=== PATIENT | female | born 2000 | race Caucasian/White ===

== ENCOUNTER → 2021-04-25 03:10 | Observation (INO) ==
[2021-04-25 02:01] LABS: Bilirubin,Urine Negative (Negative); Blood,Urine Negative (Negative); Clarity,Urine Clear (Clear); Color,Urine Yellow (Yellow); Glucose,Urine (UA) Normal (Normal); Ketones,Urine Negative (Negative); Leukocyte Esterase,Urine Small (Negative); Nitrite,Urine Negative (Negative); PH,Urine 6.5 pH Units (5.0-8.0); Protein,Urine Negative (Neg-Trace); Specific Gravity,Urine >= 1.030 (1.010-1.025); Urobilinogen,Urine Normal (Normal)
[2021-04-25 02:17] LABS: Bacteria,Urine Few per hpf (None-Few); Mucus,Urine Few per lpf (None-Few); Squamous Epithelial Cell,Urine Moderate per hpf (None-Few); WBC,Urine 15-30 per hpf (0-3)
== END | disposition home or self-care (01) ==
LOC: 1NENULAB
PROVIDERS: ADMIT Advanced Practice Midwife; ATTEND Advanced Practice Midwife

== ENCOUNTER 2021-05-04 06:37 | Inpatient (IN) ==
[2021-05-04] MEDS ORDERED: Famotidine 20 MG/2 ML VIAL IVP PRN (06:39)
[2021-05-04] MEDS ORDERED: *HR* Nalbuphine 10 MG/ML AMPUL IV PRN (06:39)
[2021-05-04] MEDS ORDERED: Metoclopramide 10 MG/2 ML VIAL IVP PRN (06:39)
[2021-05-04] MEDS ORDERED: Ondansetron 4 MG/2 ML VIAL IVP PRN ×2 (06:39→08:36)
[2021-05-04] MEDS ORDERED: Naloxone 0.4 MG/ML INJ IVP PRN ×2 (06:39→08:36)
[2021-05-04] MEDS ORDERED: Penicillin G Potassium 5,000,000 UNIT in 0.9 % Sodium Chloride Mini Bag 100 ML IVPB ONE (06:43)
[2021-05-04] MEDS ORDERED: Ringers Solution, Lactated 1,000 ML IVC SCH (06:45)
[2021-05-04 08:28] LABS: Basophils # 0.1 K/mcL (0.0-0.2); Basophils % 0.6 %; Eosinophils # 0.2 K/mcL (0.0-0.6); Eosinophils % 1.2 %; Hematocrit 36.6 % (35.3-44.9); Hemoglobin 13.1 g/dL (11.5-15.4); Immature Granulocytes % 1.2 % (0-4); Lymphocytes # 2.5 K/mcL (0.6-4.6); Lymphocytes % 17.6 %; Mean Corpuscular HGB Conc 35.8 g/dL (31.6-35.5); Mean Corpuscular Hemoglobin 33.3 pg (28.0-33.3); Mean Corpuscular Volume 93.1 fL (83.0-100.0); Mean Platelet Volume 9.8 fL (9.4-12.4); Monocytes % 6.9 %; Neutrophils # 10.1 K/mcL (1.6-8.9); Platelet Count 324 K/mcL (140-400); Red Blood Count 3.93 M/mcL (3.82-4.97); Segmented Neutrophils % 72.5 %; White Blood Count 13.9 K/mcL (4.3-11.1)
[2021-05-04 08:30] LABS: Creatinine,Urine 187 mg/dL; Protein/Creatinine Ratio,Urine 0.23 mg/mg (0.00-0.20)
[2021-05-04] MEDS ORDERED: EPHEDrine 50 MG/ML VIAL IVP PRN (08:36)
[2021-05-04] MEDS ORDERED: Ropivacaine/PF 0.2% 20 ML VIAL EP ONE (08:36)
[2021-05-04] MEDS ORDERED: *HR* FentaNYL (PF) 100 MCG/2 ML VIAL EP ONE (08:36)
[2021-05-04 08:39] LABS: Alanine Aminotransferase 11 Units/L (7-52); Aspartate Amino Transferase 16 Units/L (13-39); BUN/Creatinine Ratio 20 (6-26); Blood Urea Nitrogen 9 mg/dL (6-20); Lactate Dehydrogenase 125 Units/L (140-271); Uric Acid 4.2 mg/dL (2.3-7.6); eGFR For African Americans > 60 (> 60); eGFR For Non-African Americans > 60 (> 60)
[2021-05-04] MEDS ORDERED: Epidural Premix (fent/bupiv) 110 ML EP SCH (08:45)
[2021-05-04 08:56] LABS: Influenza A PCR Negative (Negative); Influenza B PCR Negative (Negative); Resp. Syncytial Virus PCR Negative (Negative)
[2021-05-04 09:07] LABS: SARS-CoV-2 by PCR (In House) Negative (Negative)
[2021-05-04] MEDS: Penicillin G Potassium 2,500,000 UNIT/105 ML MLS IVPB SCH ×2 (12:45→16:57)
[2021-05-04] MEDS ORDERED: Oxytocin 20 units/ LR 1000 mL 20 UNIT/1,000 ML BAG IVC SCH ×2 (13:30→20:38)
[2021-05-04] MEDS ORDERED: Ropivacaine/PF 0.2% 20 ML VIAL ONE (13:58)
[2021-05-04 17:33] LABS: Amphetamine Screen,Urine Negative ng/mL (Cutoff=1000); Barbiturate Screen,Urine Negative ng/mL (Cutoff=200); Benzodiazepines Screen,Urine Negative ng/mL (Cutoff=200); Cannabinoid Screen,Urine Positive ng/mL (Cutoff = 50); Cocaine Screen,Urine Negative ng/mL (Cutoff= 300); Opiate Screen,Urine Negative ng/mL (Cutoff=300); Phencyclidine Screen,Urine Negative ng/mL (Cutoff=25)
[2021-05-04] MEDS ORDERED: Measles/Mumps/Rubella Vacc 0.5 ML VIAL SQ PRN (20:38)
[2021-05-04] MEDS ORDERED: Oxytocin 20 units/ LR 1000 mL 20 UNIT/1,000 ML BAG IVC ONE (20:38)
[2021-05-04] MEDS ORDERED: Lanolin 7 G OINT...G. TP PRN (20:38)
[2021-05-04] MEDS ORDERED: Ondansetron ODT 4 MG TAB.RAPDIS SL PRN (20:38)
[2021-05-04] MEDS ORDERED: Benzocaine/Menthol 56 GM AEROSOL SPRAY TP PRN (20:38)
[2021-05-04] MEDS: Ibuprofen 600 MG TABLET PO SCH (21:08)
[2021-05-04] MEDS: Acetaminophen 325 MG TABLET PO SCH (21:08)
[2021-05-05] MEDS: Acetaminophen 325 MG TABLET PO SCH ×2 (04:49→11:17)
[2021-05-05] MEDS: Ibuprofen 600 MG TABLET PO SCH ×2 (04:49→11:17)
[2021-05-05 07:48] VITALS: BP 114/58; TEMP 97.8; O2SAT 98
[2021-05-05] MEDS ORDERED: Prenatal Vit/FA 1 EACH TABLET PO SCH (09:00)
[2021-05-05 17:45] VITALS: PULSE 60
== END 2021-05-05 18:09 | disposition home or self-care (01) | DRG 560 ==
LOC: 1NENULAB → 1NENUOBS 21:59
PROVIDERS: ADMIT Advanced Practice Midwife; ATTEND Advanced Practice Midwife